=== PATIENT | male | born 1995 | race Caucasian/White ===

== ENCOUNTER 2017-02-01 11:25 | Emergency (ER) | payer BC ==
[2017-02-01 11:33] VITALS: BP 125/83
--- NOTE | 2017-02-01 12:10 | EDM.PDOC ---
ED HPI GENERAL MEDICAL PROBLEM - General Chief Complaint: Head Injury Stated Complaint: HEAD PAIN Time Seen by Provider: 02/01/17 11:59 Source of Information: Reports: Patient History Limitations: Reports: No Limitations - History of Present Illness INITIAL COMMENTS - FREE TEXT/NARRATIVE: Patient is a 21-year-old male who presents to the ED complaining of right posterior head pain. Patient has a history of spinal bifida and also hydrocephalus. He has a COSTUME CUT[employer] shunt in place. States this morning while washing the floors. The patient slipped on the wet floor hitting the right side of his head on the ground. There was no loss of consciousness. He developed a headache 10 out 10 at that point that has decreased to a 7 out of 10 currently. States while taking his brother to work he blacked out for short period of time. Came too mildly confused. Does not recall the events prior to the fall. Since this occurred he's felt like there is fluid moving around his head. He is concerned that maybe something is wrong with the shunt. Denied nausea/vomiting, chest pain , shortness of breath, abdominal pain, neck pain, back pain, abdominal pain, vision changes, or any additional neurological deficits. He has no additional past medical history and is currently taking no medications. Patient does smoke half pack per day. Alcohol use rarely. Denies recreational drug use. Right Headache Pain Score (Numeric/FACES): 5 - Related Data Allergies Allergy/AdvReac Type Severity Reaction Status Date / Time No Known Allergies Allergy Verified 02/01/17 11:36 Home Meds: Home Meds . [No Known Home Meds] 02/01/17 [History] Past Medical History Musculoskeletal History: Reports: Other (See Below) Other Musculoskeletal History: spinal bifida;hydrocephelus-PT shunt Hematologic History: Reports: Hemochromatosis Other Hematologic History: has blood disorder but does not know what it is - Past Surgical History GI Surgical History: Reports: Cholecystectomy, Other (See Below) Other GI Surgeries/Procedures: spleenectomy Social & Family History - Tobacco Use Smoking Status *Q: Current Every Day Smoker Years of Tobacco use: 2 Packs/Tins Daily: 0.5 - Caffeine Use Caffeine Use: Reports: Coffee, Energy Drinks, Soda, Tea - Recreational Drug Use Recreational Drug Use: No ED ROS GENERAL - Review of Systems Review Of Systems: See Below Constitutional: Denies: Fever, Chills, Decreased Appetite HEENT: Denies: Ear Discharge, Ear Pain, Vision Change Respiratory: Reports: No Symptoms Cardiovascular: Reports: Syncope GI/Abdominal: Reports: No Symptoms Musculoskeletal: Denies: Neck Pain, Back Pain Neurological: Reports: Confusion (retrograde amnesia), Headache, Syncope. Denies: Dizziness, Numbness, Tingling, Difficulty Walking, Weakness ED EXAM, HEAD INJURY - Physical Exam Exam: See Below Exam Limited By: No Limitations General Appearance: Alert, WD/WN, No Apparent Distress Head: Scalp Tenderness (just posterior of the right ear. ), Other (COSTUME CUTTER shunt palpated along the left side of his head/neck with no obvious abnormalities. ). No: Scalp Abrasions, Scalp Ecchymosis, Scalp Hematoma, Facial Ecchymosis, Facial Lacerations, Facial Swelling, Facial Tenderness Nexus Criteria: No: Posterior, Midline Cervical Tenderness, Evidence of Intoxication, Altered Level of Consciousness, Focal Neurological Deficit, Painful Distraction Injuries Eyes: Bilateral Eye: EOMI, Nystagmus (none found), PERRL Ears: Hearing Grossly Normal Nose: Normal Inspection Throat/Mouth: Normal Inspection, Normal Oropharynx, Normal Voice, No Airway Compromise Neck: Non-Tender, Full Range of Motion, Normal Alignment, Normal Inspection Respiratory: No Respiratory Distress, Lungs Clear, Normal Breath Sounds, No Accessory Muscle Use, Chest Non-Tender Cardiovascular: Normal Peripheral Pulses, Regular Rate, Rhythm GI/Abdominal Exam: Normal Bowel Sounds, Soft, Non-Tender, No Organomegaly, No Distention Extremities: Normal Inspection, Normal Range of Motion, Non-Tender, Normal Capillary Refill, Other (cerebellar fx intact. no weakness to upper/lower extremities. sensor/motor intact. ) Neurologic: pot reliner II-XII nml As Tested, No Motor/Sensory Deficits, Alert, Normal Mood/Affect, Oriented x 3 Skin: Normal Color, Warm/Dry Course - Vital Signs Last Recorded V/S: Last Vital Signs Temp 98.6 F 02/01/17 11:31 Pulse 83 02/01/17 11:31 Resp 20 02/01/17 11:31 BP 125/83 02/01/17 11:31 Pulse Ox 100 02/01/17 11:31 - Orders/Labs/Meds Orders: Active Orders 24 hr Category Date Time Status EKG Documentation Completion [RC] STAT Care 02/01/17 12:06 Active Labs: Laboratory Tests 02/01/17 02/01/17 Range/Units 12:14 12:14 WBC 11.29 H (4.23-9.07) K/mm3 RBC 5.15 (4.63-6.08) M/mm3 Hgb 16.2 (13.7-17.5) gm/L Hct 45.2 (40.1-51.0) % MCV 87.8 (79.0-92.2) fl MCH 31.5 (25.7-32.2) pg MCHC 35.8 H (32.2-35.5) g/dl RDW Std Deviation 42.5 (35.1-43.9) fL Plt Count 461 H (163-337) K/mm3 MPV 9.9 (9.4-12.3) fl Neut % (Auto) 52.6 (34.0-67.9) % Lymph % (Auto) 31.4 (21.8-53.1) % [place] % (Auto) 12.0 (5.3-12.2) % Eos % (Auto) 2.8 (0.8-7.0) Baso % (Auto) 0.9 (0.1-1.2) % Neut # (Auto) 5.95 H (1.78-5.38) K/mm3 Lymph # (Auto) 3.54 (1.32-3.57) K/mm3 [place] # (Auto) 1.35 H (0.30-0.82) K/mm3 Eos # (Auto) 0.32 (0.04-0.54) K/mm3 Baso # (Auto) 0.10 H (0.01-0.08) K/mm3 Sodium 141 (136-145) mEq/L Potassium 4.2 (3.5-5.1) mEq/L Chloride 105 (98-107) mEq/L Carbon Dioxide 28 (21-32) mEq/L Anion Gap 12.2 (5-15) BUN 10 (7-18) mg/dL Creatinine 1.1 (0.7-1.3) mg/dL Est Cr Clr Drug Dosing 101.91 mL/min Estimated GFR (MDRD) > 60 (>60) mL/min BUN/Creatinine Ratio 9.1 L (14-18) Glucose 91 (74-106) mg/dL Calcium 9.7 (8.5-10.1) mg/dL Total Bilirubin 0.8 (0.2-1.0) mg/dL AST 20 (15-37) U/L ALT 33 (16-63) U/L Alkaline Phosphatase 78 (46-116) U/L Total Protein 7.1 (6.4-8.2) g/dl Albumin 4.0 (3.4-5.0) g/dl Globulin 3.1 gm/dL Albumin/Globulin Ratio 1.3 (1-2) - Re-Assessments/Exams Free Text/Narrative Re-Assessment/Exam: Ordered CT of the head w/o contrast, cbc, cmp, and ekg. 02/01/17 12:14 EKG revealed sinus arrhythmia rate of 74 with early repolarization pattern. No acute ST changes noted. CT of the head revealed: Prominent lateral ventricles as well as third ventricle. Ventricular shunt is seen. Without old films, uncertain of current dilatation is chronic or represent shunt malfunction. Please correlate if shunt is functioning. No acute intracranial abnormalities otherwise seen on noncontrast head CT study. Labs reviewed. 1405 Shared results of labs and CT of the head results. Request I consult Neurosurgeon at [facility]. Patient continues to have a pressure DOLAN mild in nature. No additional symptoms. 02/01/17 14:11 Called [facility] call and spoke with Dr. Monteiro instruction dean Neurosurgeon. She does not have a strong feeling at this point for shunt to have been dislodged with fall. Highly unlikely this would occur. Suggests managing patient DOLAN and discharge patient home. If he should have any worsening symptoms have him to return to the E.D. to be reevaluated. Ordered tylenol 975mg PO and to have records obtained for last CT of the head from where revision was placed. 02/01/17 15:53 Reassessment, patients headache is improving. He's been up multiple times to go to the bathroom with no difficulties. He has no neurological abnormalities. He is requesting to be discharged home. I have not received any past CT of the head results from previous medical facilities patient has been evaluated. I'll contact him him if their is any concerning findings in comparison to todays CT findings. Discharge instructions as documented. Departure - Departure Time of Disposition: 15:54 Disposition: Home, Self-Care 01 Condition: Good Clinical Impression: Concussion injury of brain, Hydrocephalus Brain ventricular shunt displacement Qualifiers: Encounter type: initial encounter Qualified Code(s): T85.02XA - Displacement of ventricular intracranial (communicating) shunt, initial encounter - Discharge Information Instructions: Post-Concussion Syndrome, [id number], Concussion, Adult, Easy- to-Read, Facial or Scalp Contusion, [id number], Head Injury, Adult, Easy-to- Read Referrals: PCP,None [Primary Care Provider] - Komal Tyler [Physician] - Forms: ED Department Discharge Additional Instructions: As discussed Dr. Monteiro neurosurgeon instruction dean at [facility] in [facility] low probability that the shunt has malfunctioned with this type of injury although the CT the head did reveal some prominence noted to the lateral ventricles suggesting shunt malfunction. We do not have any of your old records present. We are hoping to receive these records today. Your headache has improved. You have no neurological deficits at this time. Will discharge home and if any concerning findings on old CTs are present incomparison to todays CT we will contact you. In addition return back to the ED if you develop increased drowsiness, worsening headache, neurological deficits, vision changes , or any additional new or worsening symptoms. Take tylenol as needed for pain. - My Orders Last 24 Hours: My Active Orders 02/01/17 12:06 EKG Documentation Completion [RC] STAT - Assessment/Plan Last 24 Hours: My Active Orders 02/01/17 12:06 EKG Documentation Completion [RC] STAT
--- NOTE | 2017-02-01 13:20 | CT ---
Head CT Technique: Multiple axial sections through the brain were obtained. Intravenous contrast was not utilized. Comparison: No previous intracranial imaging. Findings: Lateral ventricles are rather markedly dilated. Ventricular shunt is present. Third ventricle is also dilated. Fourth ventricle appears normal. No abnormal parenchymal densities are seen. No evidence of intracranial hemorrhage. No midline shift or mass effect is seen. Bone window settings shows no acute calvarial abnormality. Impression: 1. Prominent lateral ventricles as well as third ventricle. Ventricular shunt is seen. Without old films, uncertain if current dilatation is chronic or represents shunt malfunction. Please correlate if shunt is functioning. 2. No acute intracranial abnormality is otherwise seen on noncontrast head CT study. Diagnostic code #3
== END 2017-02-01 16:07 | disposition home or self-care (01) ==
LOC: JD.ED 11:25
DX: S06.0X0A Concussion without loss of consciousness, initial encounter (principal); T85.02XA Displacement of ventricular intracranial (communicating) shunt, initial encounter; G91.9 Hydrocephalus, unspecified; Z90.49 Acquired absence of other specified parts of digestive tract; F17.210 Nicotine dependence, cigarettes, uncomplicated; W01.10XA Fall on same level from slipping, tripping and stumbling with subsequent striking against unspecified object, initial encounter
CPT/HCPCS: 36415; 70450; 70450-26; 80053; 85025; 93005; 99284; 99284-25

== ENCOUNTER 2017-02-04 08:17 | Emergency (ER) | payer BC ==
[2017-02-04 08:31] VITALS: BP 124/84
[2017-02-04] MEDS ORDERED: Benztropine 1 MG Tab PO STA (09:20)
[2017-02-04] MEDS ORDERED: Ondansetron 4 MG/2 ML SDV IVPUSH ONE (09:20)
[2017-02-04] MEDS ORDERED: Haloperidol Lactate 5 MG/ML SDV IM ONE (09:20)
[2017-02-04] MEDS ORDERED: Sodium Chloride 0.9% 1,000 ML IV SCH (09:30)
--- NOTE | 2017-02-04 12:49 | EDM.PDOC ---
ED HPI GENERAL MEDICAL PROBLEM - General Chief Complaint: Headache Stated Complaint: HEAD PAIN Time Seen by Provider: 02/04/17 08:24 Source of Information: Reports: Patient, Old Records, RN Notes Reviewed History Limitations: Reports: No Limitations - History of Present Illness INITIAL COMMENTS - FREE TEXT/NARRATIVE: The patient is a 21-year-old left-handed man with a past medical history significant for spina bifida and hydrocephalus, status post a MBA INTERNSHIP shunt placed at approximately 2 days of age. The patient states that, to his knowledge, he has never had a replacement or revision of the shunt. He was seen in this ED 3 days ago, on 02/01/2017 for a right posterior headache after slipping and falling on a wet floor, striking the right side of his head on the ground. There was no loss of consciousness. Following the injury, he had a brief period of blacking out and confusion. He denied having nausea or vomiting neck pain, visual changes, or neurologic deficits. He was found be hemodynamically stable in the ED. A CBC was remarkable for a WBC count mildly elevated 11.29, with the remainder of the CBC being normal. A CMP was unremarkable. An ECG was unremarkable. A CT scan of the head without contrast demonstrate a prominent lateral and third ventricles, with a normal-appearing fourth ventricle. The MBA [employer] shunt was visible. The radiologist did not have a prior CT scan to compare, therefore was not able to determine if the dilatation was acute or chronic. After consultation with the Neurologist Dr. Monteiro, the patient was given Tylenol, his headache, improved, and he was discharged home. The patient states that after discharge, his headache essentially resolved, but then recurred, along with photophobia, phonophobia, and nausea without emesis around 08:00 this morning. He denies having a visual changes or neurologic symptoms, such as tingling, numbness, or weakness. The headache was sharp in character, initially, but is now more of a pressure sensation. It waxes and wanes without respect to position. The patient states that the last CT scan of the brain he had was in April 2015 in [place]. Medical records were obtained from [facility] from 05/07/2015. The CT report reads "Severe hydrocephalus is noted. Ventriculoperitoneal shunt is in place. No intracranial hemorrhage, midline shift, or mass effect." Head Pain Score (Numeric/FACES): 6 - Related Data Allergies Allergy/AdvReac Type Severity Reaction Status Date / Time No Known Allergies Allergy Verified 02/04/17 08:32 Home Meds: Home Meds Rizatriptan Benzoate [Rizatriptan] 1 tab PO Q2H PRN #3 tab.rapdis 02/04/17 [Rx] Past Medical History Neurological History: Reports: Other (See Below) (Spina bifida. 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) Neurological Surgical History: Reports: Other (See Below) (Ventriculoperitoneal shunt at 2 days old) Social & Family History - Tobacco Use Smoking Status *Q: Current Every Day Smoker Years of Tobacco use: 2 Packs/Tins Daily: 0.5 - Caffeine Use Caffeine Use: Reports: Soda Caffeine Use Comment: 2 caffeinated beverages per week - Alcohol Use Alcohol Use History: Yes Alcohol Use Frequency: Socially - Recreational Drug Use Recreational Drug Use: No - Living Situation & Occupation Living situation: Reports: Single, with Family (Brother) Occupation: Employed ([employer] [employer] with [employer]) ED ROS GENERAL - Review of Systems Review Of Systems: See Below Constitutional: Reports: No Symptoms HEENT: Reports: No Symptoms Respiratory: Reports: No Symptoms Cardiovascular: Reports: No Symptoms Endocrine: Reports: No Symptoms GI/Abdominal: Reports: No Symptoms : Reports: No Symptoms Musculoskeletal: Reports: No Symptoms Skin: Reports: No Symptoms Neurological: Reports: No Symptoms Psychiatric: Reports: No Symptoms Hematologic/Lymphatic: Reports: No Symptoms Immunologic: Reports: No Symptoms - Physical Exam Exam: See Below Exam Limited By: No Limitations General Appearance: Alert, WD/WN, No Apparent Distress Eye Exam: Bilateral Eye: EOMI, Normal Inspection, PERRL Ears: Normal External Exam, Normal Canal, Hearing Grossly Normal, Normal TMs Nose: Normal Inspection, Normal Mucosa, No Blood Throat/Mouth: Normal Inspection, Normal Lips, Normal Teeth, Normal Gums, Normal Oropharynx, Normal Voice, No Airway Compromise Head Exam: Atraumatic, Normocephalic Neck: Normal Inspection, Supple, Non-Tender, Full Range of Motion Respiratory/Chest: No Respiratory Distress, Lungs Clear, Normal Breath Sounds, No Accessory Muscle Use Cardiovascular: Normal Peripheral Pulses, Regular Rate, Rhythm, No Gallop, No JVD, No Murmur, No Rub GI/Abdominal: Normal Bowel Sounds, Soft, Non-Tender, No Organomegaly, No Distention, No Abnormal Bruit, No Mass (Male) Exam: Deferred Rectal (Males) Exam: Deferred Neuro Exam (Abbreviated): Alert, Oriented, CN II-XII Intact, Normal Cognition, No Motor/Sensory Deficits Back Exam: Normal Inspection, Full Range of Motion, NT Extremities: Normal Inspection, Normal Range of Motion, No Pedal Edema, Normal Capillary Refill Psychiatric: Normal Affect Skin Exam: Warm, Dry, Intact, Normal Color, No Rash Course - Vital Signs Last Recorded V/S: Last Vital Signs Temp 36.8 C 02/04/17 08:23 Pulse 88 02/04/17 08:23 Resp 16 02/04/17 08:23 BP 124/84 02/04/17 08:23 Pulse Ox 98 02/04/17 08:23 - Orders/Labs/Meds Meds: Medications Discontinued Medications Generic Name Dose Route Start Last Admin Trade Name Diya PRN Reason Stop Dose Admin Benztropine Mesylate 1 mg 02/04/17 09:20 02/04/17 09:49 Cogentin PO 02/04/17 09:21 1 mg ONETIME STA Administration Haloperidol Lactate 5 mg 02/04/17 09:20 02/04/17 09:29 Haldol IM 02/04/17 09:21 5 mg ONETIME ONE Administration Sodium Chloride 1,000 mls @ 150 mls/hr 02/04/17 09:30 02/04/17 09:27 Normal Saline IV 150 mls/hr ASDIRECTED CAROL Administration Ondansetron HCl 4 mg 02/04/17 09:20 02/04/17 09:29 Zofran IVPUSH 02/04/17 09:21 4 mg ONETIME ONE Administration - Re-Assessments/Exams Free Text/Narrative Re-Assessment/Exam: 02/04/17 12:49 The patient states that his headache resolved completely following Haldol. This indicates that the patient's headaches are migrainous, and not related to his hydrocephalus or shunt. Additionally, I found in the patient's medical records from 05/07/2015 in [place] that his headache resolved entirely following Imitrex. While he was discharged at that time with a prescription for Imitrex, his discharge diagnosis was "intractable headache", not migraine. I will discharge the patient home with a prescription for Maxalt. Considering the patient's MBA [employer] shunt - he states that he had the shunt placed when he was about 2 days old, and has never had a revision or replacement. The original shunt would have been short, just long enough to suit an , however, as the patient grew, the shunt would have become inadequately short. In effect, then, the patient does not have a MBA INTER[employer] shunt, and yet has been able to do well his entire life. He has significant hydrocephalus on CT scan, without any apparent increased intracranial pressure. Departure - Departure Time of Disposition: 12:51 Disposition: Home, Self-Care 01 Condition: Good Clinical Impression: Migraine headache without aura - Discharge Information Prescriptions: Rizatriptan Benzoate [Rizatriptan] 1 tab PO Q2H PRN #3 tab.rapdis PRN Reason: Headache/Pain Instructions: Migraine Headache, [id number] Referrals: PCP,Ruth [Primary Care Provider] - Consuelo Monteiro MD [Ordering Only Provider] - Forms: ED Department Discharge Additional Instructions: You were seen in the emergency room for a severe headache, sensitivity to light and sound, and nausea. Medical records from [place] were acquired. The CT scan of your head from 2014 is no different than the CT scan you had yesterday. You were treated with an anti-migraine medicine, and your headache resolved completely. We also noticed that your headache resolved completely after you were treated with an anti-migraine medicine back in 2014. This indicates that your headaches are migraines, and not due to hydrocephalus or a clogged MBA [employer] shunt. For today, we recommend you stay well hydrated and get plenty of rest in a dark , quiet place. You may resume your usual activities tomorrow. Dissolve one tablet of the anti-migraine medicine Maxalt (Rizatriptan) in your mouth at the earliest sign of a migraine headache. You may repeat this medicine after 2 hours, if necessary. If this medicine works, please follow-up with the Neurologist Dr. Monteiro for a refill. If any other problems, please do not hesitate to return to the ER.
== END 2017-02-04 13:15 | disposition home or self-care (01) ==
LOC: JD.ED 08:17
DX: G43.009 Migraine without aura, not intractable, without status migrainosus (principal); F17.210 Nicotine dependence, cigarettes, uncomplicated; Z90.49 Acquired absence of other specified parts of digestive tract; Z98.890 Other specified postprocedural states; Z98.2 Presence of cerebrospinal fluid drainage device
CPT/HCPCS: 96361; 96372; 96374; 99284; A9270; J1630; J2405; J7040

== ENCOUNTER 2021-01-03 02:19 | Emergency (ER) | payer SELFPAY ==
[2021-01-03 02:34] VITALS: BP 134/78; PULSE 88
--- NOTE | 2021-01-03 02:49 | EDM.PDOC ---
ED HPI GENERAL MEDICAL PROBLEM - General Chief Complaint: Laceration Stated Complaint: FELL HIT HEAD HAS A CUT Time Seen by Provider: 01/03/21 02:29 Source of Information: Reports: Patient History Limitations: Reports: No Limitations - History of Present Illness INITIAL COMMENTS - FREE TEXT/NARRATIVE: Mr. Suarez is a very pleasant 25-year-old gentleman who now presents the ED with a laceration just above his left eyebrow. He states that he had "2 beers" earlier tonight at a friend's apartment, after which he fell around 00:30, striking his left forehead on a handrail, suffering a laceration. He denies loss of consciousness. He denies any other injuries. No treatment prior to coming to the ED. Here in the ED, the patient is found to be hemodynamically stable, afebrile, saturating 95% on room air. He appears to be somewhat inebriated, although is in no acute distress. Prior to this evening, the patient denies having a recent fever, chills, sore throat, ear pain, nasal or sinus congestion, cough, dyspnea, chest pain, palpitations, nausea, vomiting, constipation, diarrhea, abdominal pain, urinary symptoms, recent weight gain or weight loss, recent bloody bowel movements or black bowel movements, recent joint aches, headaches, or rashes. The patient does not have a PCP. He states that his last tetanus vaccination was 5 or 6 years ago. Left Upper Eyelid Pain Score (Numeric/FACES): 3 - Related Data Allergies Allergy/AdvReac Type Severity Reaction Status Date / Time No Known Allergies Allergy Verified 01/03/21 02:34 Home Meds: Home Meds . [No Known Home Meds] 06/09/18 [History] Past Medical History Neurological History: Reports: Other (See Below) (Spina bifida. 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 ED EXAM, SKIN/RASH Exam: See Below Exam Limited By: No Limitations General Appearance: Alert, WD/WN, No Apparent Distress, Other (The patient's face is flushed, and he is slurring his speech somewhat, consistent with alcohol intoxication) Eye Exam: Bilateral Eye: EOMI, Normal Inspection Ears: Normal External Exam, Hearing Grossly Normal Nose: Normal Inspection Throat/Mouth: Normal Inspection, Normal Lips, Normal Voice, No Airway Compromise Head: Normocephalic, Other (Approximately 2.25 cm linear laceration superior to the left eyebrow. Minimal bleeding. No associated swelling or ecchymosis.) Neck: Normal Inspection, Supple, Non-Tender, Full Range of Motion ED SKIN PROCEDURES - Laceration/Wound Repair Left Forehead Appearance: Subcutaneous, Linear, Clean Distal NVT: Neuro & Vascular Intact, No Tendon Injury Skin Prep: Saline Exploration/Debridement/Repair: Wound Explored, In a Bloodless Field, Explored to Base, No Foreign Material Found Closed with: Dermabond Lac/Wound length In cm: 2.3 Drain Placement: No Sterile Dressing Applied: None Tetanus Status Addressed: Yes Complications: No Course - Vital Signs Last Recorded V/S: Last Vital Signs Temp 36.5 C 01/03/21 02:27 Pulse 88 01/03/21 02:27 Resp 18 01/03/21 02:27 BP 134/78 01/03/21 02:27 Pulse Ox 95 01/03/21 02:27 - Re-Assessments/Exams Free Text/Narrative Re-Assessment/Exam: 01/03/21 02:44 As above, the patient had a couple of beers earlier tonight, then fell around 00:30, striking his left forehead on a handrail, incurring an approximately 2.25 cm linear laceration above his left eyebrow. No LOC. No other injuries. Because the edges of the wound appose each other, the wound was a good candidate for Dermabond, which I applied. The patient tolerated it the procedure well. I will discharge him home. Departure - Departure Time of Disposition: 02:45 Disposition: Home, Self-Care 01 Condition: Good Clinical Impression: Laceration of face - Discharge Information *PRESCRIPTION DRUG MONITORING PROGRAM REVIEWED*: Not Applicable *COPY OF PRESCRIPTION DRUG MONITORING REPORT IN PATIENT MAYUR: Not Applicable Referrals: PCP,None [Primary Care Provider] - Additional Instructions: You were seen in the emergency room after having a few beers and falling, striking and cutting your left forehead. Your wound was closed with Dermabond in the ER. You may get the Dermabond wet, briefly, when you bathe, however, do not soak the wound, such as in the tub or swimming. Do not pick at the glue. Allow it to flake off on its own over the next week. If any other problems, please do not hesitate to return to the ER. Sepsis Event Note (ED) - Evaluation Sepsis Screening Result: No Definite Risk - Focused Exam Vital Signs: Vital Signs Temp Pulse Resp BP Pulse Ox 01/03/21 02:27 36.5 C 88 18 134/78 95
== END 2021-01-03 02:57 | disposition home or self-care (01) ==
LOC: JD.ED 02:19
DX: S01.81XA Laceration without foreign body of other part of head, initial encounter (principal); Z72.0 Tobacco use; W22.8XXA Striking against or struck by other objects, initial encounter
CPT/HCPCS: 12011; 99282; 99282-25

== ENCOUNTER 2022-07-31 02:54 | Emergency (ER) | payer SELFPAY ==
[2022-07-31 03:20] VITALS: BP 150/96; PULSE 106
[2022-07-31] MEDS ORDERED: Diphtheria,Pertussis(Acell),Tetanus Vaccine 0.5 ML Syringe IM ONE (03:23)
[2022-07-31] MEDS ORDERED: Lidocaine 1% with EPINEPHrine 1:100,000 10 ML MDV INJECT ONE (03:23)
[2022-07-31] MEDS ORDERED: Bupivacaine 0.5% 10 ML SDV INJECT ONE (03:23)
[2022-07-31] MEDS ORDERED: Lidocaine 2% with EPINEPHrine 1:200,000 20 ML SDV ONE (04:06)
[2022-07-31] MEDS ORDERED: Lidocaine 2% with EPINEPHrine 1:100,000 20 ML MDV INJECT ONE ×2 (04:10→04:14)
[2022-07-31] MEDS ORDERED: Lidocaine 2% with EPINEPHrine 1:200,000 20 ML SDV INJECT ONE (04:18)
== END 2022-07-31 04:46 | disposition home or self-care (01) ==
LOC: JD.ED 02:54
DX: S01.112A Laceration without foreign body of left eyelid and periocular area, initial encounter (principal); F17.220 Nicotine dependence, chewing tobacco, uncomplicated; F10.929 Alcohol use, unspecified with intoxication, unspecified; Z23 Encounter for immunization; W10.9XXA Fall (on) (from) unspecified stairs and steps, initial encounter; Y92.89 Other specified places as the place of occurrence of the external cause
CPT/HCPCS: 12013; 90471; 90715; 99283; J3490; 99282

== ENCOUNTER 2022-11-22 08:12 | Inpatient (IN) | payer BC ==
[2022-11-22] MEDS ORDERED: Sodium Chloride 0.9% 10 ML Syringe FLUSH PRN (08:41)
[2022-11-22] MEDS ORDERED: Sodium Chloride 0.9% 1,000 ML IV ONE (08:57)
[2022-11-22 09:01] LABS: BASOPHILS ABSOLUTE AUTO 0.13 K/mm3 (0.01-0.08); BASOPHILS PERCENT AUTO 0.8 % (0.1-1.2); EOSINOPHILS ABSOLUTE AUTO 0.57 K/mm3 (0.04-0.54); EOSINOPHILS PERCENT AUTO 3.4 (0.8-7.0); HEMATOCRIT 41.3 % (40.1-51.0); IMMATURE GRAN ABSOLUTE AUTO 0.04 K/mm3 (0.00-0.10); IMMATURE GRAN PERCENT AUTO 0.2 % (<=1.0); LYMPHOCYTES ABSOLUTE AUTO 4.46 K/mm3 (1.32-3.57); LYMPHOCYTES PERCENT AUTO 26.5 % (21.8-53.1); MEAN CORPUSCULAR HEMOGLOBIN 29.8 pg (25.7-32.2); MEAN CORPUSCULAR HGB CONC 33.4 g/dl (32.2-35.5); MEAN CORPUSCULAR VOLUME 89.2 fl (79.0-92.2); MEAN PLATELET VOLUME 9.6 fl (9.4-12.3); MONOCYTES ABSOLUTE AUTO 2.15 K/mm3 (0.30-0.82); MONOCYTES PERCENT AUTO 12.8 % (5.3-12.2); NEUTROPHILS ABSOLUTE AUTO 9.51 K/mm3 (1.78-5.38); NEUTROPHILS PERCENT AUTO 56.3 % (34.0-67.9); RED BLOOD CELL COUNT 4.63 M/mm3 (4.63-6.08); WHITE BLOOD CELL COUNT,WBC 16.86 K/mm3 (4.23-9.07)
[2022-11-22 09:04] LABS: HEMOGLOBIN 13.8 gm/dl (13.7-17.5); PLATELET COUNT,PLT 791 K/mm3 (163-337)
[2022-11-22 09:12] LABS: PTT,PARTIAL THROMBOPLSTIN TIME 31.3 SECONDS (21.7-31.4)
[2022-11-22 09:14] LABS: D-DIMER QUANTITATIVE 1.09 mg/L (0.19-0.50); INR 1.07; PROTHROMBIN TIME 11.4 SECONDS (9.7-12.0)
[2022-11-22 09:16] LABS: A/G RATIO 0.5 (1-2); ALBUMIN 2.4 g/dl (3.4-5.0); ANION GAP 13.7 (5-15); BILIRUBIN TOTAL 0.5 mg/dL (0.2-1.0); CALCIUM 8.7 mg/dL (8.5-10.1); EST CRCL DRUG DOSING (CG) 106.4 mL/min; MAGNESIUM 1.8 mg/dL (1.8-2.4); POTASSIUM,K 3.7 mEq/L (3.5-5.1); PROTEIN TOTAL,TP 7.3 g/dl (6.4-8.2); TSH 0.456 uIU/mL (0.358-3.74)
[2022-11-22] MEDS ORDERED: Lidocaine 1% 10 ML MDV ONE (09:23)
[2022-11-22] MEDS ORDERED: Midazolam 1 MG/ML 2 ML SDV IVPUSH ONE (09:31)
[2022-11-22] MEDS ORDERED: HYDROmorphone 0.5 MG/0.5 ML Syringe IVPUSH ONE (09:31)
[2022-11-22] MEDS ORDERED: cefTRIAXone 1 GM in Sodium Chloride 0.9% 100 ML IV ONE (09:33)
[2022-11-22 09:38] LABS: SLIDE REVIEW ABNORMAL SMEAR
[2022-11-22] MEDS ORDERED: Midazolam 1 MG/ML 2 ML SDV ONE (10:08)
[2022-11-22] MEDS ORDERED: HYDROmorphone 0.5 MG/0.5 ML Syringe ONE (10:15)
[2022-11-22 10:24] LABS: LACTIC ACID 0.9 mmol/L (0.4-2.0)
[2022-11-22 10:39] LABS: CORONAVIRUS COVID-19 NAA NEGATIVE (NEGATIVE); INFLUENZA A NAA NEGATIVE (NEGATIVE); RESPIRATORY SYNCYTIAL VIR NAA NEGATIVE (NEGATIVE)
[2022-11-22] MEDS ORDERED: Ondansetron 8 MG in Sodium Chloride 0.9% 50 ML IV PRN (10:53)
[2022-11-22] MEDS: Acetaminophen/oxyCODONE 325-5 MG Tab PO PRN ×2 (13:18→20:12)
[2022-11-22] MEDS: Lactated Ringers 1,000 ML IV SCH (13:22)
[2022-11-22 15:25] LABS: APPEARANCE,URINE CLEAR (Clear); BILIRUBIN,URINE 1+ (Negative); COLOR,URINE YELLOW (Yellow); GLUCOSE,URINE NEGATIVE (Negative); KETONES,URINE NEGATIVE (Negative); LEUKOCYTE ESTERASE,URINE NEGATIVE (Negative); NITRITE,URINE NEGATIVE (Negative); OCCULT BLOOD,URINE NEGATIVE (Negative); PH,URINE 6.5 (5.0-8.0); PROTEIN,URINE 1+ (Negative); UROBILINOGEN,URINE >=8.0 (0.2-1.0)
[2022-11-22 15:32] LABS: BARBITURATE SCREEN,URINE NEGATIVE (CUTOFF=200); BENZODIAZEPINES SCREEN,URINE NEGATIVE (CUTOFF=150); BUPRENORPHINE SCREEN,URINE NEGATIVE (CUTOFF=10); METHADONE SCREEN, URINE NEGATIVE (CUT0FF=200); METHAMPHETAMINES SCREEN, URINE NEGATIVE (CUTOFF=500); OXYCODONE SCREEN,URINE NEGATIVE (CUT0FF=100); PROPOXYPHENE SCREEN,URINE NEGATIVE (CUTOFF=300); THC SCREEN,URINE 20 NG/ML NEGATIVE (CUTOFF=50)
[2022-11-22 15:40] LABS: AMPHETAMINES SCREEN, URINE NEGATIVE (CUTOFF=500)
[2022-11-22 15:43] LABS: AMORPHOUS SEDIMENT,URINE FEW /hpf (NOT SEEN); BACTERIA,URINE MODERATE /hpf (FEW); MUCUS,URINE FEW /hpf (FEW); RBC,URINE 0-5 /hpf (0-5); SQUAMOUS EPITHELIAL CELLS,UR NOT SEEN /hpf (0-5); WBC,URINE 0-5 /hpf (0-5)
[2022-11-22] MEDS: HYDROmorphone 0.5 MG/0.5 ML Syringe IVPUSH PRN (17:31)
[2022-11-23] MEDS: Ketorolac 30 MG/ML SDV IVPUSH PRN ×3 (00:27→15:33)
[2022-11-23] MEDS: Benzocaine/Cetylpyridinium/Menthol Lozenge MUCMEM PRN ×2 (00:57→03:37)
[2022-11-23] MEDS: Lactated Ringers 1,000 ML IV SCH ×2 (03:36→17:42)
[2022-11-23] MEDS ORDERED: Docusate Sodium 100 MG Cap PO SCH (16:30)
[2022-11-24] MEDS: Docusate Sodium 100 MG Cap PO SCH ×3 (05:38→23:05)
[2022-11-24] MEDS: Ketorolac 30 MG/ML SDV IVPUSH PRN (05:38)
[2022-11-24] MEDS: Lactated Ringers 1,000 ML IV SCH (06:26)
[2022-11-24] MEDS ORDERED: Sodium Chloride 0.9% 10 ML Syringe FLUSH PRN (07:37)
[2022-11-24] MEDS: Acetaminophen 325 MG Tab PO PRN ×2 (11:33→23:05)
[2022-11-24] MEDS: HYDROmorphone 0.5 MG/0.5 ML Syringe IVPUSH PRN ×3 (11:36→23:05)
[2022-11-24] MEDS ORDERED: diphenhydrAMINE 25 MG Cap PO ONE (20:06)
[2022-11-24] MEDS: Polyethylene Glycol 3350 Powder 17 GM Packet PO SCH (23:01)
[2022-11-25] MEDS: HYDROmorphone 0.5 MG/0.5 ML Syringe IVPUSH PRN ×2 (00:16→06:31)
[2022-11-25] MEDS: Acetaminophen 325 MG Tab PO PRN (03:31)
[2022-11-25] MEDS: Docusate Sodium 100 MG Cap PO SCH ×2 (06:33→13:48)
[2022-11-25] MEDS: Acetaminophen/oxyCODONE 325-5 MG Tab PO PRN (07:56)
[2022-11-25] MEDS: Polyethylene Glycol 3350 Powder 17 GM Packet PO SCH (08:00)
[2022-11-25 12:25] VITALS: BP 103/66; PULSE 83
== END 2022-11-25 17:10 | disposition home or self-care (01) | DRG 143 ==
LOC: JD.ED 08:12 → JD.MS 10:45
PROVIDERS: ADMIT Specialist; ATTEND Specialist
PROC: 0W9900Z Drainage of Right Pleural Cavity with Drainage Device, Open Approach (ICD-10-PCS; principal; 2022-11-22)
DX: J90 Pleural effusion, not elsewhere classified (principal); J98.4 Other disorders of lung; R04.2 Hemoptysis; F10.10 Alcohol abuse, uncomplicated; Z20.822 Contact with and (suspected) exposure to COVID-19; Z95.828 Presence of other vascular implants and grafts; Z90.49 Acquired absence of other specified parts of digestive tract; Z87.891 Personal history of nicotine dependence
CPT/HCPCS: 0241U; 36415; 71045; 71045-26; 71046; 71046-26; 71250; 71250-26; 80053; 80306; 81001; 82550; 83605; 83735; 84443; 84484; 85025; 85379; 85610; 85730; 87040; 93005; 93010; 94762; 96365; 96368; 96375; 99284; 99285-25; A9270-GY; J0696; J1170; J1885; J2250; J3370; J3490; J7050; J7120